=== PATIENT | female | born 1975 ===

== ENCOUNTER 2021-11-01 10:55 | Day surgery (SDC) | payer MEDICAID ==
[~2021-11-01 10:55] MED LIST: Dexamethasone 4 MG/ML 5 ML MDV ONE; EPINEPHrine 1 MG/ML 30 ML MDV IRR SCH; Ketorolac 30 MG/ML SDV ONE; Lactated Ringers 1,000 ML IV SCH; Lidocaine 1% 4 ML ONE; Midazolam 1 MG/ML 2 ML SDV ONE; Ondansetron 4 MG/2 ML SDV ONE; Propofol 200 MG/20 ML SDV ONE; Sodium Chloride 0.9% 10 ML Syringe FLUSH PRN; ceFAZolin 1 GM Vial ONE; fentaNYL 100 MCG/2 ML SDV ONE
[2021-11-01] MEDS ORDERED: Lidocaine 1%/Sod Bicarbonate in NS 8.4% 1 ML Syringe IDERM ONE (11:00)
[2021-11-01] MEDS ORDERED: Bupivacaine 0.25% 10 ML SDV ONE (11:33)
[2021-11-01] MEDS ORDERED: ePHEDrine 50 MG/ML SDV ONE (12:09)
[2021-11-01] MEDS ORDERED: Ondansetron 4 MG/2 ML SDV IVPUSH PRN (12:53)
[2021-11-01] MEDS ORDERED: fentaNYL 100 MCG/2 ML SDV IVPUSH PRN (12:53)
[2021-11-01] MEDS ORDERED: HYDROmorphone 0.5 MG/0.5 ML Syringe IVPUSH PRN (12:53)
[2021-11-01] MEDS ORDERED: Acetaminophen/HYDROcodone 325-5 MG Tab PO PRN (13:00)
== END 2021-11-01 14:28 | disposition home or self-care (01) ==
LOC: JD.SDS 10:55
PROVIDERS: ATTEND Orthopaedic Surgery
DX: M67.52 Plica syndrome, left knee (principal); M25.862 Other specified joint disorders, left knee; M22.42 Chondromalacia patellae, left knee; E78.5 Hyperlipidemia, unspecified; S83.242A Other tear of medial meniscus, current injury, left knee, initial encounter; K21.9 Gastro-esophageal reflux disease without esophagitis; Z88.8 Allergy status to other drugs, medicaments and biological substances; Z79.899 Other long term (current) drug therapy; Z87.891 Personal history of nicotine dependence
CPT/HCPCS: 29875; J0171; J0690; J1100; J1885; J2250; J2405; J2704; J3010; J3490; J7120; 01400